=== PATIENT | male | born 1965 | race Asian ===

== ENCOUNTER 2021-07-19 17:56 | Emergency (ER) | payer MEDICARE ==
[~2021-07-19] VITALS: Ht 162.6 cm; Wt 72.7 kg
[~2021-07-19 17:56] MED LIST: IBUP-676 PO; [UNRECOGNIZED DRUG - OTHER]; [UNRECOGNIZED DRUG - OTHER]
[2021-07-19] MEDS ORDERED: ACET-2247 PO (18:01)
[2021-07-19 18:37] VITALS: BP 132/88
[2021-07-19] MEDS ORDERED: BUPIVACAINE HCL/PF 0.25% 10 ML VIAL SQ ONE (18:45)
[2021-07-19] MEDS ORDERED: POVIDONE-IODINE 10% 120 ML SOLUTION TP ONE (18:45)
== END 2021-07-19 19:00 | disposition home or self-care (01) ==
LOC: EMS 17:58
DX: L03.011 Cellulitis of right finger (principal); Z88.1 Allergy status to other antibiotic agents; Z79.899 Other long term (current) drug therapy
CPT/HCPCS: 10060; 99283; J3490